=== PATIENT | male | born 1930 | race Caucasian/White ===

== ENCOUNTER 2019-01-26 11:17 | Emergency (ER) | payer MEDICARE, OTHER ==
--- NOTE | 2019-01-26 11:51 | ED Physician Chart ---
ED Chief Complaint/HPI - Patient Information Date Seen:: 01/26/19 Time Seen:: 11:30 Chief Complaint:: Weakness History of Present Illness:: onset x 2 days of weakness and dizziness with a possible syncope event; pt found on floor of his home unable to ambulate; no report of H/As, neck pain, C/P , SOB, Abd. Pain, A/N/V/D/C, fever, chills, or urinary s/s Vitals:: Vital Signs - 8 hr 01/26/19 11:33 Temp 97.5 F HR 60 RR 14 BP 103/64 O2 Sat % 98 Historian:: Patient, Family Member Review:: Nurse's Note Reviewed, Old Chart Reviewed ED Review of Systems - Review of Systems General/Constitutional: No fever, No chills, No weight loss, Weakness, No diaphoresis, No edema, No loss of appetite Skin: No skin lesions, No rash, No bruising Head: No headache, No light-headedness Eyes: No loss of vision, No pain, No diplopia ENT: No earache, No nasal drainage, No sore throat, No tinnitus Neck: No neck pain, No swelling, No thyromegaly, No stiffness, No mass noted Cardio Vascular: No chest pain, No palpitations, No PND, No orthopnea, No edema Pulmonary: No SOB, No cough, No sputum, No wheezing GI: No nausea, No vomiting, No diarrhea, No pain, No melena, No hematochezia, No constipation, No hematemesis G/U: No dysuria, No frequency, No hematuria, No nacturia Musculoskeletal: No bone or joint pain, No back pain, No muscle pain Endocrine: No polyuria, No polydipsia Psychiatric: No prior psych history, No depression, No anxiety, No suicidal ideation, No homicidal ideation, No auditory hallucination, No visual hallucination Hematopoietic: No bruising, No lymphadenopathy Allergic/Immuno: No urticaria, No angioedema Neurological: No syncope, No focal symptoms, Weakness, No paresthesia, No headache, No seizure, Dizziness, No confusion, Vertigo ED Past Medical History - Past Medical History Obtainable: Yes Past Medical History: HTN, Dyslipidemia Family History: HTN Social History: Non Smoker, No Alcohol, No Drug Use, Surgical History: None Psychiatricy History: None Medication: Reviewed Family Medical History - Family Member Mother History Unknown: Yes ED Physical Exam - Physical Examination General/Constitutional: Awake, Well-developed, well-nourished, Alert, No distress, GCS 15, Non-toxic appearing, Ambulatory Head: Atraumatic Eyes: Lids, conjuctiva normal, PERRL, EOMI Skin: Nl inspection, No rash, No skin lesions, No ecchymosis, Well hydrated, No lymphadenopathy ENMT: External ears, nose nl, TM canals nl, Nasal exam nl, Lips, teeth, gums nl , Oropharynx nl, Tonsils nl Neck: Nontender, Full ROM w/o pain, No JVD, No nuchal rigidity, No bruit, No mass, No stridor Respiratory: Nl effort/Exclusion, Clear to Auscultation, No Wheeze/Rhonchi/Rales Cardio Vascular: RRR, No murmur, gallop, rubs, NL S1 S2, Carotid/Femoral/Distal pulses equal bilaterally GI: No tenderness/rebounding/guarding, No organomegaly, No hernia, Normal BS's, Nondistended, No mass/bruits, No McBurney tenderness : No CVA tenderness Extremities: No tenderness or effusion, Full ROM, normal strength in all extremities, No edema, Normal digits & nails Neuro/Psych: Alert/oriented, DTR's symmetric, Normal sensory exam, Normal motor strength, Judgement/insight normal, Mood normal, Normal gait, No focal deficits Misc: Normal back, No paraspinal tenderness ED Labs/Radiology/EKG Results - Lab Results Comments:: Reviewed - Radiology Results Comments:: CXR: CM; NAD - EKG Interpretations EKG Time:: 11:48 Rate & Rhythm: 85; NSR Comments:: non-specific st-t changes ED Septic Shock - . Is Septic Shock (SBP<90, OR Lactate>4 mmol\L) present?: No - <6hrs of presentation: Vital Signs: Vital Signs - 8 hr 01/26/19 11:33 Temp 97.5 F HR 60 RR 14 BP 103/64 O2 Sat % 98 ED Reassessment (Disposition) - Reassessment Reassessment Condition:: Improved - Diagnosis Diagnosis:: Weakness; Dizziness; Dehydration; Hypoalbuminemia; Hyponatremia; Lactic Acidosis ; Elevated Lactic Acid; UTI; Sepsis - Aftercare/Follow up Instructions Aftercare/Follow-Up Instructions:: Counseled pt regarding lab results/diagnosis & need follow up, Counseled pt & family regarding lab results/diagnosis & need follow up Medication Prescribed:: pt to be transferred as a direct admission to a [facility] via [facility] - Patient Disposition Discharge/Transfer:: Acute Care (other hosp) Time Called:: 1300 Time Responded:: 13:00 Admitted to:: Telemetry Condition at Disposition:: Stable, Improved
[2019-01-26 12:12] LABS: % BASOPHILS 0.5 % (0.0-2.0); % LYMPHOCYTES 13.5 % (20.0-50.0); % MONOCYTES 7.5 % (2.0-10.0); % NEUTROPHILS 77.5 % (40.0-80.0); EOSINOPHILE ABSOLUTE 0.1 Th/cmm (0.1-0.4); HEMATOCRIT 39.9 % (41.0-60); HEMOGLOBIN 13.3 gm/dL (12-16); LYMPHOCYTE ABSOLUTE 1.3 Th/cmm (1.5-3.0); MEAN CELL VOLUME 94.5 fl (80-99); MEAN CORPUSCULAR HEMOGLOBIN 31.4 pg (27.0-31.0); MEAN CORPUSCULAR HGB CONC 33.2 pg (28.0-36.0); MEAN PLATELET VOLUME 7.1 fl; MONOCYTE ABSOLUTE 0.7 Th/cmm (0.3-1.0); NEUTROPHILE ABSOLUTE 7.8 Th/cmm (1.8-8.0); PLATELET COUNT 196 Th/cmm (150-400); RED BLOOD COUNT 4.22 Mil/cmm (3.80-5.80); RED CELL DISTRIBUTION WIDTH 13.3 % (11.5-20.0); WHITE BLOOD COUNT 9.9 Th/cmm (4.8-10.8)
[2019-01-26 12:20] LABS: INR 0.99 (0.5-1.4); PROTHROMBIN TIME (TEST) 10.3 SECONDS (9.5-11.5)
[2019-01-26 12:24] LABS: ALB/GLOB RATIO 1.4 (1.0-1.8); ALKALINE PHOSPHATASE 64 U/L (34-104); BILIRUBIN,TOTAL 0.8 mg/dL (0.3-1.0); BUN - UREA NITROGEN 31 mg/dL (7-25); CALCIUM SERUM 9.7 mg/dL (8.6-10.3); CARBON DIOXIDE 19.8 mEq/L (21.0-31.0); CHLORIDE 101 mEq/L (98-107); CREATININE - SERUM 1.5 mg/dL (0.7-1.3); CREATININE KINASE 290 U/L (30-223); GLUCOSE 207 mg/dL (70-105); POTASSIUM SERUM 3.8 mEq/L (3.5-5.1); SGOT 16 U/L (13-39); SGPT/ALT 12 U/L (7-52); SODIUM SERUM 135 mEq/L (136-145); TOTAL PROTEIN,SERUM 6.8 gm/dL (6.0-8.3)
[2019-01-26 12:32] LABS: TROP I 0.06 ng/mL (0.01-0.05)
[2019-01-26] MEDS ORDERED: Sodium Chloride 0.9% 1,000 ML IV ONE (12:35)
[2019-01-26] MEDS ORDERED: cefTRIAXone 1 GM in Sodium Chloride 0.9% 50 ML IV ONE (12:36)
[2019-01-26 12:51] LABS: AMYLASE SERUM 54 U/L (29-103); LIPASE 23 U/L (11-82)
[2019-01-26 14:09] LABS: URINE SOURCE MIDSTREAM
[2019-01-26 14:13] LABS: URINE BILIRUBIN NEGATIVE (NEGATIVE); URINE BLOOD MODERATE (NEGATIVE); URINE GLUCOSE (UA) 100 mg/dL (NEGATIVE); URINE KETONE TRACE mg/dL (NEGATIVE); URINE LEUKOCYTE ESTERASE MODERATE (NEGATIVE); URINE MICROSCOPIC INDICATED? YES; URINE NITRATE POSITIVE (NEGATIVE); URINE PROTEIN 100 mg/dL (NEGATIVE)
[2019-01-26 14:14] LABS: URINE CLARITY HAZY (CLEAR); URINE COLOR YELLOW
[2019-01-26 14:19] LABS: URINE BACTERIA 3+ /hpf (NONE SEEN); URINE EPITHELIAL CELLS FEW /lpf (FEW)
[2019-01-26 14:20] LABS: URINE AMORPHOUS SEDIMENT FEW URATES (NONE SEEN)
[2019-01-26] MEDS ORDERED: Sodium Chloride 0.9% 1,000 ML IV SCH (19:00)
--- NOTE | 2019-01-27 08:00 | Diagnostic Imaging Report ---
Portable chest x-ray History: Pain Allowing for portable technique the heart size is normal. Atherosclerotic calcification seen in the aorta. No focal pulmonary parenchymal processes. No hilar or mediastinal abnormalities. Impression: 1. No acute abnormalities 2. Atherosclerotic vascular changes
--- NOTE | 2019-01-27 08:00 | Diagnostic Imaging Report ---
CT scan of the brain without intravenous contrast HISTORY: Headache, trauma Total DLP equals 612 CTDI equals 40.4 Axial sections were obtained from the base of the skull to the vertex. There is prominence/enlargement of the ventricular system size. Associated enlargement of cerebral sulci and subarachnoid cisterns. Findings are consistent with changes of generalized cerebral atrophy. No acute parenchymal abnormalities. No acute cerebral hemorrhage. Hypodensity is seen within the supratentorial white matter regions without mass effect. The findings may be associated with chronic small vessel ischemic disease. No extra-axial masses or abnormal fluid collections. Evidence of fluid within the right mastoid air cells consistent with a degree of inflammatory change. IMPRESSION: 1. No acute abnormalities 2. Cerebral atrophy 3. Supratentorial white matter changes that may reflect chronic small vessel ischemic disease 4. Fluid within a portion of the right mastoid air cells consistent with a degree of inflammatory change.
--- NOTE | 2019-01-27 08:02 | Diagnostic Imaging Report ---
CT scan cervical spine HISTORY: Pain, trauma Total DLP equals 418 CTDI equals 20.8 Axial sections were obtained to the cervical spine. Additional sagittal and coronal reformatted images are provided. There is reversal of the cervical lordosis that may be associated with spasm. There are diffuse degenerative changes. Findings most pronounced with exuberant spur formation noted at C3-4, C5, C6,. Narrowing of the C4-5, C5-6, C6-7, and C7-T1 interspaces. No acute abnormalities. No fractures. Bilateral neural foraminal encroachment at multiple levels. The prevertebral soft tissues appear normal. Atherosclerotic calcification seen within the carotid artery regions. IMPRESSION: 1. No acute abnormalities 2. Severe degenerative changes 3. Atherosclerotic vascular changes
== END 2019-01-26 20:00 | disposition short-term general hospital (02) ==
LOC: ER 11:17
DX: A41.9 Sepsis, unspecified organism (principal); E87.1 Hypo-osmolality and hyponatremia; E86.0 Dehydration; E87.2 Acidosis; N39.0 Urinary tract infection, site not specified; E88.09 Other disorders of plasma-protein metabolism, not elsewhere classified; R42 Dizziness and giddiness; I10 Essential (primary) hypertension
CPT/HCPCS: 99285; 96365; 93005; 71045; 70450; 72125; 84484; 36415; 83605 ×2; 85025; 85610; 85730; 87086; 81001; 82150; 82550; 82553; 83036; 83690; 80053; 87040 ×2; J0696; J7030

== ENCOUNTER 2019-03-31 09:36 | Inpatient (IN) | payer OTHER ==
--- NOTE | 2019-03-31 09:54 | ED Physician Chart ---
ED Chief Complaint/HPI - Patient Information Date Seen:: 03/31/19 Time Seen:: 09:40 Chief Complaint:: Generalized weakness with recurrent falls. History of Present Illness:: Brought in by his daughter Simran and his because of generalized weakness with recurrent falls for about one week. Pt feels lightheaded occasionally. Pt has had recurrent falls and sustained skin tear in proximal left forearm last evening. Pt also has had left sided chest wall pain from a fall about 2 months ago that can be precipitated and aggravated with deep inspiration. No LOC or mentation change. Pt is alert and oriented x 3. Pt speaks clearly and overall cooperative. Last tetanus immunization is unknown. Allergies:: Allergies Allergy/AdvReac Type Severity Reaction Status Date / Time No Known Allergies Allergy Verified 01/26/19 11:46 Vitals:: see Nurse Note. Historian:: Patient, Family Member (daughter Simran.) Family MD/PCP:: Dr. Mix. LMP:: N/A Review:: Nurse's Note Reviewed ED Review of Systems - Review of Systems General/Constitutional: No fever, No weight loss, Weakness (generalized.), No diaphoresis, No edema, Loss of appetite Skin: No rash, Other (left forearm skin tear.) Head: No headache, Light headed (occasional) Eyes: No loss of vision, No pain, No diplopia ENT: No earache, Sore throat (?) Neck: No neck pain, No swelling, No thyromegaly, No stiffness, No mass noted Cardio Vascular: Chest pain (chest wall pain after a fall 2 months ago.), No palpitations, No PND, No orthopnea, No edema Pulmonary: No SOB, Cough, Sputum (yellow sputum), No wheezing GI: No nausea, No vomiting, No pain, No melena, No hematochezia G/U: No dysuria, No frequency, No hematuria Musculoskeletal: Other (posterior neck pain.) Psychiatric: No prior psych history, No depression Hematopoietic: No lymphadenopathy Allergic/Immuno: No urticaria, No angioedema Neurological: No syncope, No focal symptoms, Weakness (generalized weakness as well as left hemiparesis related to CVA about 2 y/a.), No headache, No seizure, No confusion ED Past Medical History - Past Medical History Past Medical History: HTN, DM, 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 Surgical History: None Psychiatricy History: None Medication: Reviewed Family Medical History - Family Member Mother History Unknown: Yes ED Physical Exam - Physical Examination General/Constitutional: Awake, Well-developed, well-nourished, Alert, No distress, GCS 15, Non-toxic appearing Other Gen/Cons comments:: Breathes comfortably with frequent coughs. Speaks clearly and interacts appropriately. Head: Atraumatic Eyes: Lids, conjuctiva normal, PERRL Skin: No rash, No lymphadenopathy Other Skin comments:: There is an approx. 3 cm skin tear noticed in proximal left forearm with minimal tenderness with palpation. No gross deformity, erythema, swelling or active bleeding. Left upper extremity has good ROM of all joints. No detectable motor/sensory/vascular deficit. Good distal pulse. Mucous membrane is slightly dry. ENMT: External ears, nose nl, TM canals nl, Nasal exam nl, Oropharynx nl Neck: No JVD, No nuchal rigidity, No mass, No stridor Other Neck comments:: Mild tenderness at posterior aspect. No gross deformity, erythema, ecchymosis, swelling or open wound. Respiratory: Nl effort/Exclusion Other Respiratory comments:: Few scattered crackles at the bases. No rales or wheeze. Cardio Vascular: RRR, No murmur, gallop, rubs, Carotid/Femoral/Distal pulses equal bilaterally GI: No tenderness/rebounding/guarding, No organomegaly, Normal BS's, Nondistended, No mass/bruits Other GI comments:: Abdomen is soft. : No CVA tenderness Extremities: No tenderness or effusion, Full ROM, No edema Neuro/Psych: Alert/oriented (oriented x 3), Judgement/insight normal, Mood normal Other Neuro/Psych comments:: Mild motor weakness in LUE and LLE. Pt states that this is chronic since his stroke about 2 years ago. Misc: Normal back, No paraspinal tenderness ED Labs/Radiology/EKG Results - Lab Results Results: Laboratory Results - last 24 hr 03/31/19 03/31/19 03/31/19 10:40 10:40 10:40 WBC 11.5 H RBC 4.02 Hgb 12.9 Hct 37.7 L MCV 93.8 MCH 32.0 H MCHC Differential 34.1 RDW 13.2 Plt Count 251 MPV 6.5 Add Manual Diff YES Band Neutrophils % 0 Neutrophils (Manual) 84 H Lymphocytes 10 L Monocytes 6 Eosinophils 0 Basophils 0 PT 10.3 INR 0.99 PTT (Actin FS) 28.5 Sodium 137 Potassium 4.1 Chloride 103 Carbon Dioxide 22.5 Anion Gap 15.6 BUN 28 H Creatinine 1.3 Est GFR ( Amer) TNP Est GFR (Non-Af Amer) TNP BUN/Creatinine Ratio 21.5 Glucose 212 H Calcium 9.8 Total Bilirubin 1.2 H AST 12 L ALT 13 Alkaline Phosphatase 88 Troponin I Total Protein 6.9 Albumin 3.9 L Globulin 3.0 Albumin/Globulin Ratio 1.3 03/31/19 10:40 WBC RBC Hgb Hct MCV MCH MCHC Differential RDW Plt Count MPV Add Manual Diff Band Neutrophils % Neutrophils (Manual) Lymphocytes Monocytes Eosinophils Basophils PT INR PTT (Actin FS) Sodium Potassium Chloride Carbon Dioxide Anion Gap BUN Creatinine Est GFR ( Amer) Est GFR (Non-Af Amer) BUN/Creatinine Ratio Glucose Calcium Total Bilirubin AST ALT Alkaline Phosphatase Troponin I 0.01 Total Protein Albumin Globulin Albumin/Globulin Ratio - Radiology Results Results: PCXR: No acute abnormalities. Atherosclerotic vascular changes. 5 mm calcified nodule within the left upper lobe c/w old granulomatous disease. Official report by Dr. Lee Valles, radiologist. Left rib series: No acute abnormalities. Official report by Dr. Lee Valles, radiologist. Left forearm X-ray: No acute focal bony abnormalities. Official report by Dr. Lee Valles, radiologist. Head CT: No acute abnormalities. Supratentorial white matter changes. The findings may be associated with chronic small vessel ischemic disease. Cerebral atrophy. Official report by Dr. Lee Valles, radiologist. Cervical spine CT: No acute abnormalities. Diffuse degenerative changes. Atherosclerotic vascular changes. Official report per Dr. Lee Valles, radiologist. - EKG Interpretations EKG Time:: 10:19 Rate & Rhythm: NSR with VR 78 Comments:: No acute ischemic changes. ED Septic Shock - . Is Septic Shock (SBP<90, OR Lactate>4 mmol\L) present?: No ED Reassessment (Disposition) - Reassessment Reassessment:: 1136 Pt has been repeatedly evaluated. Pt remains stable and is now comfortable. EKG, lab, and radiological findings have been reviewed with pt. Management plan has been discussed. 1315 Case was discussed with Dr. Ba with pertinent H & P, EKG, radiological , and lab findings reviewed. He will accept pt for transfer if a hospital bed is found. 1508 Pt remains stable and appears to be comfortable. Nursing staff just informed me that pt has been authorized to be admitted here. 1518 Case was discussed with Dr. Sanabria with pertinent info reviewed. Pt is to be admitted to [facility] under his care. Reassessment Condition:: Improved - Diagnosis Diagnosis:: Generalized weakness with frequent falls, resulting in left forearm skin tear and cervical strain. Mild dehydration from poor oral intake. Acute bronchitis. Diabetes mellitus. Chronic left sided chest wall pain from previous fall by hx. Mild hyperbilirubinemia. Consider Gilbert Syndrome. H/O CVA with left hemiparesis. - Patient Disposition Admitted to:: Med/Surg Admitting Medical Physician:: Jevon Sanabria Time:: 15:20 Condition at Disposition:: Stable
[2019-03-31] MEDS ORDERED: Acetaminophen 500 MG TAB PO ONE (10:13)
[2019-03-31] MEDS ORDERED: Acetaminophen 500 MG TAB ONE (10:17)
[2019-03-31 10:52] LABS: HEMATOCRIT 37.7 % (41.0-60); HEMOGLOBIN 12.9 gm/dL (12-16); MEAN CELL VOLUME 93.8 fl (80-99); MEAN CORPUSCULAR HGB CONC 34.1 pg (28.0-36.0); MEAN PLATELET VOLUME 6.5 fl; PLATELET COUNT 251 Th/cmm (150-400); RED BLOOD COUNT 4.02 Mil/cmm (3.80-5.80); RED CELL DISTRIBUTION WIDTH 13.2 % (11.5-20.0); WHITE BLOOD COUNT 11.5 Th/cmm (4.8-10.8)
[2019-03-31 11:03] LABS: INR 0.99 (0.5-1.4); PROTHROMBIN TIME (TEST) 10.3 SECONDS (9.5-11.5)
[2019-03-31] MEDS ORDERED: Azithromycin 500 MG in Sodium Chloride 0.9% 250 ML IV ONE (11:13)
[2019-03-31 11:17] LABS: ALB/GLOB RATIO 1.3 (1.0-1.8); ALBUMIN 3.9 gm/dL (4.2-5.5); ALKALINE PHOSPHATASE 88 U/L (34-104); ANION GAP 15.6 (7.0-16.0); BILIRUBIN,TOTAL 1.2 mg/dL (0.3-1.0); BUN - UREA NITROGEN 28 mg/dL (7-25); CALCIUM SERUM 9.8 mg/dL (8.6-10.3); CARBON DIOXIDE 22.5 mEq/L (21.0-31.0); CHLORIDE 103 mEq/L (98-107); CREATININE - SERUM 1.3 mg/dL (0.7-1.3); GLUCOSE 212 mg/dL (70-105); POTASSIUM SERUM 4.1 mEq/L (3.5-5.1); SGOT 12 U/L (13-39); SGPT/ALT 13 U/L (7-52); SODIUM SERUM 137 mEq/L (136-145); TOTAL PROTEIN,SERUM 6.9 gm/dL (6.0-8.3)
--- NOTE | 2019-03-31 11:20 | Diagnostic Imaging Report ---
CT scan of the brain without intravenous contrast HISTORY: Recurrent falls, syncope Total DLP equals 747 CTDI equals 39.2 Axial sections were obtained from the base of the skull the vertex. There is enlargement of the ventricular system along with enlargement of cerebral sulci and subarachnoid cisterns reflecting generalized atrophy. Hypodensity seen throughout the supratentorial white matter regions without mass effect. The findings may be associated with chronic small vessel ischemic disease. No acute intracerebral hemorrhage. No extra-axial masses or abnormal fluid collections. IMPRESSION: 1. No acute abnormalities 2. Supratentorial white matter changes. The findings may be associated with chronic small vessel ischemic disease 3. Cerebral atrophy
--- NOTE | 2019-03-31 11:21 | Diagnostic Imaging Report ---
CT scan cervical spine HISTORY: Pain, trauma Total DLP equals 479 CTDI equals 19.9 Axial sections were obtained through the cervical spine. Additional sagittal and coronal reformatted images are provided. The exam demonstrates degenerative changes with hypertrophic spur formation noted about the endplates of all vertebrae. Findings are most pronounced from C4 down through C7. Narrowing of the C4-5, C5-6, C6-7, and C7-T1 interspaces. Spur formation results in mild extradural encroachment on the anterior spinal canal at these levels. No acute abnormalities. No fractures. The prevertebral soft tissues appear normal. Atherosclerotic vascular calcination seen in the region of the carotid arteries. IMPRESSION: 1. No acute abnormalities 2. Diffuse degenerative changes 3. Atherosclerotic vascular changes
[2019-03-31 11:22] LABS: BAND NEUTROPHILE 0 % (0-10); BASOPHIL 0 % (0-3); EOSINOPHIL 0 % (0-5); LYMPHOCYTE 10 % (20-50); MONOCYTE 6 % (2-10); NEUTROPHILS 84 % (40-80)
--- NOTE | 2019-03-31 11:29 | Diagnostic Imaging Report ---
Portable chest x-ray HISTORY: Cough The heart size is normal. Atherosclerotic calcification seen within the aorta. A 5 mm calcified nodule is seen in the left upper lobe. Findings consistent with old granulomatous disease. No acute focal pulmonary processes. IMPRESSION: 1. No acute abnormalities 2. Atherosclerotic vascular changes 3. 5 mm calcified nodule within the left upper lobe consistent with old granulomatous disease.
--- NOTE | 2019-03-31 11:31 | Diagnostic Imaging Report ---
Left RIBS (4 views) HISTORY: Pain No acute bony abnormalities. No fractures. No acute pulmonary parenchymal or pleural abnormalities. A 5 mm calcified nodule is seen in the left upper lobe of the lung consistent with old granulomatous disease. Atherosclerotic calcination seen in the aorta. IMPRESSION: 1. No acute abnormalities.
--- NOTE | 2019-03-31 11:32 | Diagnostic Imaging Report ---
Left forearm (2 views) HISTORY: Pain No acute bony abnormalities. No fractures. IMPRESSION: 1. No acute focal bony abnormalities
[2019-03-31] MEDS ORDERED: Sodium Chloride 0.9% 1,000 ML IV SCH (11:36)
[2019-03-31 14:54] LABS: URINE SOURCE CLEAN C
[2019-03-31 14:57] LABS: URINE BILIRUBIN SMALL (NEGATIVE); URINE BLOOD SMALL (NEGATIVE); URINE GLUCOSE (UA) 100 mg/dL (NEGATIVE); URINE KETONE TRACE mg/dL (NEGATIVE); URINE LEUKOCYTE ESTERASE MODERATE (NEGATIVE); URINE MICROSCOPIC INDICATED? YES; URINE NITRATE NEGATIVE (NEGATIVE); URINE PH 5.5 (4.6 - 8.0); URINE PROTEIN 100 mg/dL (NEGATIVE)
[2019-03-31 15:10] LABS: URINE CLARITY CLEAR (CLEAR); URINE COLOR YELLOW
[2019-03-31 15:14] LABS: URINE BACTERIA 1+ /hpf (NONE SEEN); URINE EPITHELIAL CELLS FEW /lpf (FEW)
[2019-03-31] MEDS ORDERED: Sulfamethoxazole/TMP 800/160mg Tab PO ONE (15:26)
[2019-03-31] MEDS ORDERED: Sulfamethoxazole/TMP 800/160mg Tab ONE (15:35)
[2019-03-31] MEDS ORDERED: cefTRIAXone 1 GM in Sodium Chloride 0.9% 50 ML IV SCH (18:45)
[2019-03-31] MEDS ORDERED: Sodium Chloride 0.9% 1,000 ML IV ONE (18:45)
[2019-03-31 19:10] VITALS: BP 159/74
[2019-03-31] MEDS: Ciprofloxacin 200mg Premix PB 200 MG/100 ML BAG IV SCH (20:16)
[2019-03-31] MEDS: INSULIN LISPRO SLIDING SCALE 100 UNITS/ML UNIT SUBQ SCH (20:24)
[2019-04-01 04:58] LABS: % BASOPHILS 0.4 % (0.0-2.0); % EOSINOPHILS 2.9 % (0.0-5.0); % LYMPHOCYTES 10.6 % (20.0-50.0); % MONOCYTES 7.5 % (2.0-10.0); % NEUTROPHILS 78.6 % (40.0-80.0); EOSINOPHILE ABSOLUTE 0.3 Th/cmm (0.1-0.4); HEMOGLOBIN 11.8 gm/dL (12-16); LYMPHOCYTE ABSOLUTE 1.1 Th/cmm (1.5-3.0); MEAN CELL VOLUME 94.5 fl (80-99); MEAN CORPUSCULAR HEMOGLOBIN 31.1 pg (27.0-31.0); MEAN CORPUSCULAR HGB CONC 32.9 pg (28.0-36.0); MEAN PLATELET VOLUME 6.2 fl; MONOCYTE ABSOLUTE 0.8 Th/cmm (0.3-1.0); NEUTROPHILE ABSOLUTE 8.6 Th/cmm (1.8-8.0); PLATELET COUNT 252 Th/cmm (150-400); RED BLOOD COUNT 3.81 Mil/cmm (3.80-5.80); RED CELL DISTRIBUTION WIDTH 13.4 % (11.5-20.0); WHITE BLOOD COUNT 10.8 Th/cmm (4.8-10.8)
[2019-04-01 06:02] LABS: ALB/GLOB RATIO 1.3 (1.0-1.8); ALBUMIN 3.6 gm/dL (4.2-5.5); ALKALINE PHOSPHATASE 82 U/L (34-104); ANION GAP 15.3 (7.0-16.0); BILIRUBIN,TOTAL 1.2 mg/dL (0.3-1.0); BUN - UREA NITROGEN 23 mg/dL (7-25); CALCIUM SERUM 9.2 mg/dL (8.6-10.3); CARBON DIOXIDE 21.9 mEq/L (21.0-31.0); CHLORIDE 103 mEq/L (98-107); CHOLESTEROL 104 mg/dL (<200); CREATININE - SERUM 1.2 mg/dL (0.7-1.3); HDL -HIGH DENSITY LIPOPROTEIN 29 mg/dL (23-92); MAGNESIUM 1.5 mg/dL (1.9-2.7); POTASSIUM SERUM 3.2 mEq/L (3.5-5.1); SGOT 13 U/L (13-39); SGPT/ALT 15 U/L (7-52); SODIUM SERUM 137 mEq/L (136-145); TOTAL PROTEIN,SERUM 6.4 gm/dL (6.0-8.3); TRIGLYCERIDES 117 mg/dL (<150)
[2019-04-01 06:03] LABS: GLUCOSE 134 mg/dL (70-105)
[2019-04-01] MEDS ORDERED: Potassium Chloride 20 mEq ER Tab PO ONE (07:06)
[2019-04-01] MEDS: INSULIN LISPRO SLIDING SCALE 100 UNITS/ML UNIT SUBQ SCH ×4 (07:39→21:54)
[2019-04-01] MEDS: Aspirin 81mg Chewable Tab PO SCH (08:33)
[2019-04-01] MEDS: Ciprofloxacin 200mg Premix PB 200 MG/100 ML BAG IV SCH ×2 (08:35→21:51)
[2019-04-01] MEDS ORDERED: Atorvastatin Calcium 10 MG TAB PO SCH (17:00)
[2019-04-01] MEDS ORDERED: Promethazine DM 6.25/15mg-5mL 5 ML SYR PO PRN (21:08)
--- NOTE | 2019-04-01 21:43 | History & Physical ---
ADMIT DATE: 03/31/2019 CHIEF COMPLAINT: Frequent falling and left-sided weakness. HISTORY OF PRESENT ILLNESS: The patient is an 88-year-old gentleman with a history of CVA about 2 years ago with residual left-sided upper and lower extremity weakness, occasional dizziness, history of hypertension, diabetes, who was brought in by his daughter for recurrent falls, more noticeable for the last week. It is unsure as to how many falls he has had for the prior mentioned time, but there is also previous falling. Per patient's account including 1-2 months ago where he ended up with a hitting his left thorax into a kitchen cabinet and since then he has had chest pain, especially upon deep breathing and some congestion with yellow phlegm. The chest pain is getting better and he has been treated a couple of times with p.o. antibiotics with no avail. Apparently, he did receive physical therapy after the stroke was diagnosed, but he stopped that as he did not feel he was getting better. Pertinent findings noted at the ER including a white count of 11.5. UA consistent with a UTI. A head CT showing; 1. No acute abnormalities. 2. Supratentorial white matter changes. 3. Cerebral atrophy. He also had a cervical spine CT showing; 1. No acute abnormalities. 2. Diffuse degenerative changes. 3. Atherosclerotic vascular changes. The patient has been admitted to the [facility] for further management and care. PAST MEDICAL HISTORY: As noted above, also dyslipidemia, BPH. PAST SURGICAL HISTORY: None listed. FAMILY HISTORY: History of coronary artery disease. There is also one daughter with a brain cancer. SOCIAL HISTORY: Denies any tobacco, ETOH or illicit drug usage. Currently lives at home with family. ALLERGIES: AMOXICILLIN. OUTPATIENT MEDICATIONS: Losartan 50 every day, metformin 1000 mg b.i.d., aspirin 81 every day, atorvastatin 20 every day, Plavix 75 every day, Proscar 5 every day, glipizide 10 mg b.i.d., lisinopril 10 mg daily, Flomax 0.4 daily. REVIEW OF SYSTEMS: CONSTITUIONALLY: Feels weak and tired with a recent decreased p.o. intake given his cough. Again, he complains of occasional dizziness, but denies any fever, chills, any recent weight loss per se. HEAD AND NECK: Congestion. Currently, no sinus pressure or congestion. CARDIAC: Denies any chest pain, palpitations. PULMONARY: Ongoing cough for the last couple of months and occasional chest pain upon deep breathing, which is getting better. GASTROINTESTINAL: No bowel habit changes. GENITOURINARY: No bladder habit changes. NEUROLOGIC: Please refer to HPI. Frequent falling well, which are nonsyncopal in nature. He does complain of left-sided weakness and feels that his a left lower extremity gives out, and therefore, in conjunction with the dizziness has experienced the frequent falls. PHYSICAL EXAMINATION: VITAL SIGNS: Temperature 98.5, pulse 62, BP 146/73, respirations 18, satting 94-96% on room air. GENERAL: He is a well-developed, thin elderly male, currently lying in bed, awake, alert and oriented x 3, able to answer questions appropriately. He is not distress, nontoxic appearing. HEAD AND NECK: Normocephalic, atraumatic. Pupils are reactive to light. Extraocular movements are intact. Oropharynx is moist and clear. CARDIOVASCULAR: Regular rate and rhythm without any noticeable murmurs, gallops or rubs. LUNGS: Diminished at the bases, currently clear to auscultation. ABDOMEN: Soft, supple, nontender, nondistended, normoactive bowel sounds. EXTREMITIES: Lower extremity, there is no pedal edema. NEUROLOGIC: There is a left-sided weakness roughly about 3/5 in both upper and lower extremities. Otherwise, neuro exam is intact. LABORATORY DATA: On admission, white count 11.5, H and H 12/37 with platelet count of 251. BUN 28. Otherwise, chemistry was within normal limits. Glucose 212. LFTs were essentially within normal limits. Troponins are negative x 1 set. Albumin 3.9. UA positive for protein and glucose, small blood, small bilirubin, moderate leukocyte esterase with 2-5 rbc's, 6-10 wbc's and 1+ bacteria. DIAGNOSTICS: Please refer to HPI. There was also x-ray, ribs; no acute abnormalities. X-ray of the left forearm shows no acute abnormalities. Chest x-ray: 1. No acute abnormalities. 2. Atherosclerotic vascular changes. 3. A 5 mm calcified nodule within the left upper lobe consistent with old granulomatous disease. ASSESSMENT: 1. Generalized weakness with frequent falls. 2. Recent fall with left-sided trauma -- no obvious fractures per x-ray, resolved. 3. Likely bronchitis versus pneumonia/atelectasis secondary to chest wall pain. 4. Urinary tract infection. 5. History of cerebrovascular accident with left-sided weakness. 6. History of type 2 diabetes. 7. History of essential hypertension. 8. Leukocytosis. 9. History of benign prostatic hypertrophy. PLAN: The patient has been admitted to [facility] for further management and care. The patient has been placed on IV antibiotics to cover the UTI and possible bronchitis and will be kept on his current medications except for the TANNER inhibitor, which will be discontinued given that he is on ARB. He was briefly placed on IV fluids at the ER, which have been discontinued and as far as his frequent falling, I have discussed the plan with the patient, which he is agreeable to which includes a 2D echo, carotid ultrasound and a physical therapy evaluation. We will follow urine cultures and sensitivities and followup x-ray resolved in the a.m. [facility]# [id number] LEOLA
[2019-04-02 06:36] LABS: ANION GAP 12.7 (7.0-16.0); BUN - UREA NITROGEN 15 mg/dL (7-25); CALCIUM SERUM 8.8 mg/dL (8.6-10.3); CARBON DIOXIDE 19.9 mEq/L (21.0-31.0); CHLORIDE 108 mEq/L (98-107); GLUCOSE 109 mg/dL (70-105); MAGNESIUM 2.1 mg/dL (1.9-2.7); POTASSIUM SERUM 3.6 mEq/L (3.5-5.1); SODIUM SERUM 137 mEq/L (136-145)
[2019-04-02] MEDS: INSULIN LISPRO SLIDING SCALE 100 UNITS/ML UNIT SUBQ SCH ×4 (06:41→20:47)
[2019-04-02 06:44] LABS: % BASOPHILS 0.3 % (0.0-2.0); % EOSINOPHILS 2.5 % (0.0-5.0); % LYMPHOCYTES 14.7 % (20.0-50.0); % MONOCYTES 9.3 % (2.0-10.0); % NEUTROPHILS 73.2 % (40.0-80.0); EOSINOPHILE ABSOLUTE 0.2 Th/cmm (0.1-0.4); LYMPHOCYTE ABSOLUTE 1.2 Th/cmm (1.5-3.0); MEAN CELL VOLUME 95.5 fl (80-99); MEAN CORPUSCULAR HEMOGLOBIN 31.9 pg (27.0-31.0); MEAN CORPUSCULAR HGB CONC 33.4 pg (28.0-36.0); MEAN PLATELET VOLUME 6.5 fl; MONOCYTE ABSOLUTE 0.8 Th/cmm (0.3-1.0); NEUTROPHILE ABSOLUTE 5.9 Th/cmm (1.8-8.0); PLATELET COUNT 233 Th/cmm (150-400); RED BLOOD COUNT 3.46 Mil/cmm (3.80-5.80); RED CELL DISTRIBUTION WIDTH 13.2 % (11.5-20.0); WHITE BLOOD COUNT 8.1 Th/cmm (4.8-10.8)
--- NOTE | 2019-04-02 08:01 | Diagnostic Imaging Report ---
CHEST X-RAY: AP view INDICATION: Cough COMPARISON: 03/31/2019 FINDINGS: Left upper lung zone 4mm calcified granuloma is noted. Chronic lung changes are noted. No focal consolidation or effusions. Heart size is normal. Atherosclerosis is noted. IMPRESSION: Chronic lung changes. No focal consolidation identified. 4 mm left upper lobe calcified granuloma. Atherosclerotic vascular disease.
--- NOTE | 2019-04-02 08:02 | Diagnostic Imaging Report ---
Carotid ultrasound HISTORY: Falls COMPARISON: None Technique: Longitudinal and transverse sonographic sector images of the carotid arteries were obtained with doppler analysis. FINDINGS: Exam of the right side demonstrates intimal thickening and mild atherosclerotic vascular disease with focal calcified plaque seen within the proximal right ICA. Exam of the left side demonstrates intimal thickening and mild generalized atherosclerosis. No evidence of elevated velocities. The velocity ratios are within normal limits. Antegrade vertebral artery flow is demonstrated bilaterally. IMPRESSION: Mild atherosclerotic vascular disease. No evidence of hemodynamically significant stenosis.
[2019-04-02] MEDS: Aspirin 81mg Chewable Tab PO SCH (08:31)
[2019-04-02] MEDS: Ciprofloxacin 200mg Premix PB 200 MG/100 ML BAG IV SCH ×2 (08:32→20:46)
--- NOTE | 2019-04-02 10:01 | Internal Medicine Prog Note ---
Internal Medicine Subjective - Subjective Service Date: 04/02/19 (NO ACUTE EVENTS OR DISTRESS. PARTICIPATED WITH PT- MOSTLY BEDSIDE.) Patient seen and examined:: without staff Patient is:: asleep Per staff patient has:: no adverse event, eating well, tolerating meds Internal Medicine Objective - Results Result Diagrams: 04/02/19 05:15 04/02/19 05:40 Recent Labs: Laboratory Last Values WBC 8.1 Th/cmm (4.8-10.8) 04/02/19 05:15 RBC 3.46 Mil/cmm (3.80-5.80) L 04/02/19 05:15 Hgb 11.0 gm/dL (12-16) L 04/02/19 05:15 Hct 33.0 % (41.0-60) L 04/02/19 05:15 MCV 95.5 fl (80-99) 04/02/19 05:15 MCH 31.9 pg (27.0-31.0) H 04/02/19 05:15 MCHC Differential 33.4 pg (28.0-36.0) 04/02/19 05:15 RDW 13.2 % (11.5-20.0) 04/02/19 05:15 Plt Count 233 Th/cmm (150-400) 04/02/19 05:15 MPV 6.5 fl 04/02/19 05:15 Add Manual Diff YES 03/31/19 10:40 Neutrophils % 73.2 % (40.0-80.0) 04/02/19 05:15 Band Neutrophils % 0 % (0-10) 03/31/19 10:40 Lymphocytes % 14.7 % (20.0-50.0) L 04/02/19 05:15 Monocytes % 9.3 % (2.0-10.0) 04/02/19 05:15 Eosinophils % 2.5 % (0.0-5.0) 04/02/19 05:15 Basophils % 0.3 % (0.0-2.0) 04/02/19 05:15 Neutrophils (Manual) 84 % (40-80) H 03/31/19 10:40 Lymphocytes 10 % (20-50) L 03/31/19 10:40 Monocytes 6 % (2-10) 03/31/19 10:40 Eosinophils 0 % (0-5) 03/31/19 10:40 Basophils 0 % (0-3) 03/31/19 10:40 PT 10.3 SECONDS (9.5-11.5) 03/31/19 10:40 INR 0.99 (0.5-1.4) 03/31/19 10:40 PTT (Actin FS) 28.5 SECONDS (26.0-38.0) 03/31/19 10:40 Sodium 137 mEq/L (136-145) 04/02/19 05:40 Potassium 3.6 mEq/L (3.5-5.1) 04/02/19 05:40 Chloride 108 mEq/L (98-107) H 04/02/19 05:40 Carbon Dioxide 19.9 mEq/L (21.0-31.0) L 04/02/19 05:40 Anion Gap 12.7 (7.0-16.0) 04/02/19 05:40 BUN 15 mg/dL (7-25) 04/02/19 05:40 Creatinine 1.0 mg/dL (0.7-1.3) 04/02/19 05:40 Est GFR ( Amer) TNP 04/02/19 05:40 Est GFR (Non-Af Amer) TNP 04/02/19 05:40 BUN/Creatinine Ratio 15.0 04/02/19 05:40 Glucose 109 mg/dL (70-105) H 04/02/19 05:40 POC Glucose 100 MG/DL (70 - 105) 04/02/19 06:09 Calcium 8.8 mg/dL (8.6-10.3) 04/02/19 05:40 Magnesium 2.1 mg/dL (1.9-2.7) 04/02/19 05:40 Total Bilirubin 1.2 mg/dL (0.3-1.0) H 04/01/19 04:50 AST 13 U/L (13-39) 04/01/19 04:50 ALT 15 U/L (7-52) 04/01/19 04:50 Alkaline Phosphatase 82 U/L (34-104) 04/01/19 04:50 Troponin I 0.01 ng/mL (0.01-0.05) 03/31/19 10:40 B-Natriuretic Peptide 280.0 pg/mL (5.0-100.0) H 04/02/19 05:15 Total Protein 6.4 gm/dL (6.0-8.3) 04/01/19 04:50 Albumin 3.6 gm/dL (4.2-5.5) L 04/01/19 04:50 Globulin 2.8 gm/dL 04/01/19 04:50 Albumin/Globulin Ratio 1.3 (1.0-1.8) 04/01/19 04:50 Triglycerides 117 mg/dL (<150) 04/01/19 04:50 Cholesterol 104 mg/dL (<200) 04/01/19 04:50 LDL Cholesterol Direct 58 mg/dL (75-193) L 04/01/19 04:50 HDL Cholesterol 29 mg/dL (23-92) 04/01/19 04:50 TSH 3.22 uIU/ml (0.34-5.60) 04/01/19 04:50 Urine Source CLEAN C 03/31/19 14:30 Urine Color YELLOW 03/31/19 14:30 Urine Clarity CLEAR (CLEAR) 03/31/19 14:30 Urine pH 5.5 (4.6 - 8.0) 03/31/19 14:30 Ur Specific [place] 1.025 (1.005-1.030) 03/31/19 14:30 Urine Protein 100 mg/dL (NEGATIVE) H 03/31/19 14:30 Urine Glucose (UA) 100 mg/dL (NEGATIVE) H 03/31/19 14:30 Urine Ketones TRACE mg/dL (NEGATIVE) 03/31/19 14:30 Urine Blood SMALL (NEGATIVE) H 03/31/19 14:30 Urine Nitrate NEGATIVE (NEGATIVE) 03/31/19 14:30 Urine Bilirubin SMALL (NEGATIVE) H 03/31/19 14:30 Urine Urobilinogen 2.0 E.U./dL (0.2 - 1.0) 03/31/19 14:30 Ur Leukocyte Esterase MODERATE (NEGATIVE) H 03/31/19 14:30 Urine RBC 2-5 /hpf (0-5) H 03/31/19 14:30 Urine WBC 6-10 /hpf (0-5) 03/31/19 14:30 Ur Epithelial Cells FEW /lpf (FEW) 03/31/19 14:30 Urine Bacteria 1+ /hpf (NONE SEEN) H 03/31/19 14:30 - Physical Exam Vitals and I&O: Vital Signs Temp 98.0 F 04/02/19 08:00 Pulse 60 04/02/19 08:31 Resp 18 04/02/19 08:00 BP 162/77 04/02/19 08:31 Pulse Ox 96 04/02/19 08:00 Intake & Output 04/01/19 04/02/19 04/02/19 18:59 06:59 18:59 Intake Total 220 650 Output Total 120 Balance 100 650 Weight (lbs) 70.307 kg 71.668 kg Intake: Intake, IV Amount 100 100 Ciprofloxacin 200mg 100 100 Premix PB 200 mg In 100 ml @ 100 mls/hr IV Q12HR [facility] Rx#:[id number] Oral 120 550 Output: Urine 120 Other: # Voids 4 4 # Bowel Movements 0 Stool Characteristics Soft Soft Weight Source Bedscale Bedscale Active Medications: Current Medications Acetaminophen (Tylenol) 650 mg PO Q6H PRN PRN Reason: FOR PAIN Stop: 05/30/19 19:59 Last Admin: 03/31/19 20:15 Dose: 650 mg Aspirin (Aspirin Chewable) 81 mg PO DAILY [facility] Stop: 05/31/19 08:59 Last Admin: 04/02/19 08:31 Dose: 81 mg Atorvastatin Calcium (Lipitor) 20 mg PO QPM [facility] Stop: 05/31/19 16:59 Last Admin: 04/01/19 17:34 Dose: 20 mg Clopidogrel Bisulfate (Plavix) 75 mg PO QPM [facility] Stop: 05/31/19 16:59 Last Admin: 04/01/19 17:34 Dose: 75 mg Finasteride (Proscar) 5 mg PO DAILY [facility]; Protocol Stop: 05/31/19 08:59 Last Admin: 04/02/19 08:30 Dose: 5 mg Glipizide (Glucotrol) 10 mg PO BID [facility] Stop: 05/31/19 08:59 Last Admin: 04/02/19 08:30 Dose: 10 mg Ciprofloxacin (Cipro 200mg Premix Pb) 200 mg in 100 mls @ 100 mls/hr IV Q12HR [facility] Stop: 05/30/19 20:59 Last Admin: 04/02/19 08:32 Dose: 100 mls/hr Insulin Human Lispro (Humalog Insulin Sliding Scale) 0 units SUBQ ACHS [facility]; Protocol Stop: 05/30/19 20:59 Last Admin: 04/02/19 06:41 Dose: Not Given Lisinopril (Zestril) 10 mg PO DAILY [facility] Stop: 05/31/19 08:59 Last Admin: 04/02/19 08:31 Dose: 10 mg Promethazine HCl/Dextromethorphan (Phenergan Dm 6.25/15mg-5 Ml) 10 ml PO Q4HR PRN PRN Reason: Cough Stop: 05/31/19 21:07 Tamsulosin HCl (Flomax) 0.4 mg PO DAILY [facility] Stop: 05/31/19 08:59 Last Admin: 04/02/19 08:31 Dose: 0.4 mg General: NAD HEENT: NC/AT, PERRLA, EOMI Neck: Supple, No JVD, No LAD Lungs: CTAB Cardiovascular: RRR, Normal S1, Normal S2, without murmur Abdomen: soft, non-tender, non-distended Extremities: clear Neurological: no change - Procedures Procedures: CXR: CHRONIC LUNG CHANGES. 4MM MUKUND CALCIFIED GRANULOMA. ATHREROSCLEROTIC VASCULAR DISEASE CAROTID US: MILD ATHEROSCLEROTIC VASCULAR DISEASE. NO HEMODYNAMICALLY SIGNIFICANT STENOSIS 2D-ECHO: LVEF-60% Internal Medicine Assmt/Plan - Assessment Assessment: 1) GENERILIZED WEAKNESS WITH FREQUENT FALLS 2) RECENT FALL WITH LEFT CHEST/ARM TRAUMA-NO EVIDENCE OF FRACTURES 3) HISTORY OF CVA WITH LATE FINDINGS (LEFT SIDED WEAKNESS/ATAXIA/DIZZYNESS) 4) UTI-FOLLOW C/S 5) LIKELY BRONCHITIS/ATELECTASIS 6) LEUKOCYTOSIS-RESOLVED 7) HISTORY OF DM2 8) ESSENTIAL HTN 9) HISTORY OF BPH 10) MUKUND CALCIFIED GRANULOMA 11) DISPO-SNF PLACEMENT PER FAMILY'S WISHES - Plan Plan: CONT WITH CURRENT SUPPORTIVE CARE AND MGT CONT WITH PT TOLERATED CONT WITH CURRENT MEDS SCHEDULED, INCLUDING ASA/PLAVIX/STATIN BP MEDS ADJUSTED CONT WITH IV ABXS, FOLLOW C/S PT AND FAMILY AGREEABLE TO DC TO SNF
[2019-04-02] MEDS ORDERED: Potassium Chloride 20 mEq ER Tab PO ONE (10:06)
--- NOTE | 2019-04-02 16:27 | Cardiology ---
04/01/[address] Sanabria M-MODE ECHOCARDIOGRAM: Mitral valve, anterior leaflet of mitral valve shows normal excursion, EF velocity. Posterior leaflet of mitral valve shows normal excursion. Left ventricular posterior wall shows increased thickness, normal excursion. Interventricular septum shows increased thickness, normal excursion, hypertrophy of the left ventricle, ejection fraction 60%. Left atrium normal. Aortic root shows normal dimension, normal excursion of aortic leaflets. 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 2D ECHO: Long axis view showed normal sized left ventricle with hypertrophy of the left ventricle. Left atrium normal. Aortic root shows normal dimension, normal excursion of aortic leaflets. Short axis view of mitral valve normal. Short axis view of aortic valve normal. Apical four chamber view showed normal-sized left ventricle, left atrium, right ventricle, right atrium, tricuspid and mitral valve. Ejection fraction 60%. 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 Doppler study shows moderate mitral regurgitation, moderate tricuspid regurgitation, right ventricular systolic pressure 30 mmHg. JOB# [id number]
[2019-04-03 05:40] LABS: % BASOPHILS 0.3 % (0.0-2.0); % EOSINOPHILS 3.5 % (0.0-5.0); % LYMPHOCYTES 15.4 % (20.0-50.0); % MONOCYTES 11.1 % (2.0-10.0); % NEUTROPHILS 69.7 % (40.0-80.0); EOSINOPHILE ABSOLUTE 0.3 Th/cmm (0.1-0.4); HEMATOCRIT 33.8 % (41.0-60); HEMOGLOBIN 11.6 gm/dL (12-16); LYMPHOCYTE ABSOLUTE 1.2 Th/cmm (1.5-3.0); MEAN CELL VOLUME 94.4 fl (80-99); MEAN CORPUSCULAR HEMOGLOBIN 32.2 pg (27.0-31.0); MEAN CORPUSCULAR HGB CONC 34.1 pg (28.0-36.0); MEAN PLATELET VOLUME 6.2 fl; MONOCYTE ABSOLUTE 0.9 Th/cmm (0.3-1.0); NEUTROPHILE ABSOLUTE 5.6 Th/cmm (1.8-8.0); PLATELET COUNT 250 Th/cmm (150-400); RED BLOOD COUNT 3.58 Mil/cmm (3.80-5.80); RED CELL DISTRIBUTION WIDTH 13.2 % (11.5-20.0)
[2019-04-03 06:08] LABS: ANION GAP 12.6 (7.0-16.0); BUN - UREA NITROGEN 16 mg/dL (7-25); CARBON DIOXIDE 22.2 mEq/L (21.0-31.0); CHLORIDE 107 mEq/L (98-107); CREATININE - SERUM 1.1 mg/dL (0.7-1.3); GLUCOSE 157 mg/dL (70-105); MAGNESIUM 2.3 mg/dL (1.9-2.7); POTASSIUM SERUM 3.8 mEq/L (3.5-5.1); SODIUM SERUM 138 mEq/L (136-145)
[2019-04-03] MEDS: INSULIN LISPRO SLIDING SCALE 100 UNITS/ML UNIT SUBQ SCH ×3 (06:40→17:21)
[2019-04-03] MEDS: Ciprofloxacin 200mg Premix PB 200 MG/100 ML BAG IV SCH (08:24)
[2019-04-03] MEDS: Aspirin 81mg Chewable Tab PO SCH (08:28)
--- NOTE | 2019-04-03 12:15 | Internal Medicine Prog Note ---
Internal Medicine Subjective - Subjective Service Date: 04/03/19 (comfortable. patient and family agreeable to short snf placement.) Patient is:: awake Per staff patient has:: no adverse event, eating well, tolerating meds Internal Medicine Objective - Results Result Diagrams: 04/03/19 05:10 04/03/19 05:10 Recent Labs: Laboratory Last Values WBC 8.0 Th/cmm (4.8-10.8) 04/03/19 05:10 RBC 3.58 Mil/cmm (3.80-5.80) L 04/03/19 05:10 Hgb 11.6 gm/dL (12-16) L 04/03/19 05:10 Hct 33.8 % (41.0-60) L 04/03/19 05:10 MCV 94.4 fl (80-99) 04/03/19 05:10 MCH 32.2 pg (27.0-31.0) H 04/03/19 05:10 MCHC Differential 34.1 pg (28.0-36.0) 04/03/19 05:10 RDW 13.2 % (11.5-20.0) 04/03/19 05:10 Plt Count 250 Th/cmm (150-400) 04/03/19 05:10 MPV 6.2 fl 04/03/19 05:10 Add Manual Diff YES 03/31/19 10:40 Neutrophils % 69.7 % (40.0-80.0) 04/03/19 05:10 Band Neutrophils % 0 % (0-10) 03/31/19 10:40 Lymphocytes % 15.4 % (20.0-50.0) L 04/03/19 05:10 Monocytes % 11.1 % (2.0-10.0) H 04/03/19 05:10 Eosinophils % 3.5 % (0.0-5.0) 04/03/19 05:10 Basophils % 0.3 % (0.0-2.0) 04/03/19 05:10 Neutrophils (Manual) 84 % (40-80) H 03/31/19 10:40 Lymphocytes 10 % (20-50) L 03/31/19 10:40 Monocytes 6 % (2-10) 03/31/19 10:40 Eosinophils 0 % (0-5) 03/31/19 10:40 Basophils 0 % (0-3) 03/31/19 10:40 PT 10.3 SECONDS (9.5-11.5) 03/31/19 10:40 INR 0.99 (0.5-1.4) 03/31/19 10:40 PTT (Actin FS) 28.5 SECONDS (26.0-38.0) 03/31/19 10:40 Sodium 138 mEq/L (136-145) 04/03/19 05:10 Potassium 3.8 mEq/L (3.5-5.1) 04/03/19 05:10 Chloride 107 mEq/L (98-107) 04/03/19 05:10 Carbon Dioxide 22.2 mEq/L (21.0-31.0) 04/03/19 05:10 Anion Gap 12.6 (7.0-16.0) 04/03/19 05:10 BUN 16 mg/dL (7-25) 04/03/19 05:10 Creatinine 1.1 mg/dL (0.7-1.3) 04/03/19 05:10 Est GFR ( Amer) TNP 04/03/19 05:10 Est GFR (Non-Af Amer) TNP 04/03/19 05:10 BUN/Creatinine Ratio 14.5 04/03/19 05:10 Glucose 157 mg/dL (70-105) H 04/03/19 05:10 POC Glucose 139 MG/DL (70 - 105) H 04/03/19 06:03 Calcium 9.0 mg/dL (8.6-10.3) 04/03/19 05:10 Magnesium 2.3 mg/dL (1.9-2.7) 04/03/19 05:10 Total Bilirubin 1.2 mg/dL (0.3-1.0) H 04/01/19 04:50 AST 13 U/L (13-39) 04/01/19 04:50 ALT 15 U/L (7-52) 04/01/19 04:50 Alkaline Phosphatase 82 U/L (34-104) 04/01/19 04:50 Troponin I 0.01 ng/mL (0.01-0.05) 03/31/19 10:40 B-Natriuretic Peptide 280.0 pg/mL (5.0-100.0) H 04/02/19 05:15 Total Protein 6.4 gm/dL (6.0-8.3) 04/01/19 04:50 Albumin 3.6 gm/dL (4.2-5.5) L 04/01/19 04:50 Globulin 2.8 gm/dL 04/01/19 04:50 Albumin/Globulin Ratio 1.3 (1.0-1.8) 04/01/19 04:50 Triglycerides 117 mg/dL (<150) 04/01/19 04:50 Cholesterol 104 mg/dL (<200) 04/01/19 04:50 LDL Cholesterol Direct 58 mg/dL (75-193) L 04/01/19 04:50 HDL Cholesterol 29 mg/dL (23-92) 04/01/19 04:50 TSH 3.22 uIU/ml (0.34-5.60) 04/01/19 04:50 Urine Source CLEAN C 03/31/19 14:30 Urine Color YELLOW 03/31/19 14:30 Urine Clarity CLEAR (CLEAR) 03/31/19 14:30 Urine pH 5.5 (4.6 - 8.0) 03/31/19 14:30 Ur Specific [place] 1.025 (1.005-1.030) 03/31/19 14:30 Urine Protein 100 mg/dL (NEGATIVE) H 03/31/19 14:30 Urine Glucose (UA) 100 mg/dL (NEGATIVE) H 03/31/19 14:30 Urine Ketones TRACE mg/dL (NEGATIVE) 03/31/19 14:30 Urine Blood SMALL (NEGATIVE) H 03/31/19 14:30 Urine Nitrate NEGATIVE (NEGATIVE) 03/31/19 14:30 Urine Bilirubin SMALL (NEGATIVE) H 03/31/19 14:30 Urine Urobilinogen 2.0 E.U./dL (0.2 - 1.0) 03/31/19 14:30 Ur Leukocyte Esterase MODERATE (NEGATIVE) H 03/31/19 14:30 Urine RBC 2-5 /hpf (0-5) H 03/31/19 14:30 Urine WBC 6-10 /hpf (0-5) 03/31/19 14:30 Ur Epithelial Cells FEW /lpf (FEW) 03/31/19 14:30 Urine Bacteria 1+ /hpf (NONE SEEN) H 03/31/19 14:30 - Physical Exam Vitals and I&O: Vital Signs Temp 98.4 F 04/03/19 07:44 Pulse 76 04/03/19 08:27 Resp 18 04/03/19 08:00 BP 156/90 04/03/19 08:27 Pulse Ox 96 04/03/19 07:44 Intake & Output 04/02/19 04/03/19 04/03/19 18:59 06:59 18:59 Intake Total 300 200 Output Total 76 Balance 224 200 Weight (lbs) 71.668 kg 70.307 kg Intake: Intake, IV Amount 100 100 Ciprofloxacin 200mg 100 100 Premix PB 200 mg In 100 ml @ 100 mls/hr IV Q12HR [facility] Rx#:[id number] Oral 200 100 Output: Urine 75 Stool 1 Other: # Voids 4 3 # Bowel Movements 1 Stool Characteristics Soft Soft Soft Weight Source Bedscale Bedscale Active Medications: Current Medications Acetaminophen (Tylenol) 650 mg PO Q6H PRN PRN Reason: FOR PAIN Stop: 05/30/19 19:59 Last Admin: 04/02/19 22:34 Dose: 650 mg Aspirin (Aspirin Chewable) 81 mg PO DAILY [facility] Stop: 05/31/19 08:59 Last Admin: 04/03/19 08:28 Dose: 81 mg Atorvastatin Calcium (Lipitor) 40 mg PO DAILY [facility]; Protocol Stop: 06/01/19 10:14 Last Admin: 04/03/19 08:26 Dose: 40 mg Clopidogrel Bisulfate (Plavix) 75 mg PO QPM [facility] Stop: 05/31/19 16:59 Last Admin: 04/02/19 17:09 Dose: 75 mg Finasteride (Proscar) 5 mg PO DAILY [facility]; Protocol Stop: 05/31/19 08:59 Last Admin: 04/03/19 08:26 Dose: 5 mg Glipizide (Glucotrol) 10 mg PO BID [facility] Stop: 05/31/19 08:59 Last Admin: 04/03/19 08:26 Dose: 10 mg Hydralazine HCl (Apresoline) 25 mg PO Q4HR PRN PRN Reason: SBP ABOVE 160 Stop: 06/01/19 10:08 Ciprofloxacin (Cipro 200mg Premix Pb) 200 mg in 100 mls @ 100 mls/hr IV Q12HR [facility] Stop: 05/30/19 20:59 Last Admin: 04/03/19 08:24 Dose: 100 mls/hr Insulin Human Lispro (Humalog Insulin Sliding Scale) 0 units SUBQ ACHS [facility]; Protocol Stop: 05/30/19 20:59 Last Admin: 04/03/19 11:27 Dose: 2 units Lisinopril (Zestril) 20 mg PO DAILY [facility] Stop: 06/01/19 10:14 Last Admin: 04/03/19 08:27 Dose: 20 mg Promethazine HCl/Dextromethorphan (Phenergan Dm 6.25/15mg-5 Ml) 10 ml PO Q4HR PRN PRN Reason: Cough Stop: 05/31/19 21:07 Last Admin: 04/02/19 22:34 Dose: 10 ml Tamsulosin HCl (Flomax) 0.4 mg PO DAILY [facility] Stop: 05/31/19 08:59 Last Admin: 04/03/19 08:27 Dose: 0.4 mg General: NAD HEENT: NC/AT, PERRLA, EOMI Neck: Supple, No JVD, No LAD Lungs: CTAB Cardiovascular: RRR, Normal S1, Normal S2, without murmur Abdomen: soft, non-tender, non-distended Extremities: clear Neurological: no change Internal Medicine Assmt/Plan - Assessment Assessment: 1) GENERILIZED WEAKNESS WITH FREQUENT FALLS 2) RECENT FALL WITH LEFT CHEST/ARM TRAUMA-NO EVIDENCE OF FRACTURES 3) HISTORY OF CVA WITH LATE FINDINGS (LEFT SIDED WEAKNESS/ATAXIA/DIZZYNESS) 4) UTI-FOLLOW C/S 5) LIKELY BRONCHITIS/ATELECTASIS 6) LEUKOCYTOSIS-RESOLVED 7) HISTORY OF DM2 8) ESSENTIAL HTN 9) HISTORY OF BPH 10) MUKUND CALCIFIED GRANULOMA 11) DISPO-SNF PLACEMENT PER FAMILY'S WISHES - Plan Plan: CONT WITH CURRENT SUPPORTIVE CARE AND MGT CONT WITH PT TOLERATED CONT WITH CURRENT MEDS SCHEDULED, INCLUDING ASA/PLAVIX/STATIN CONT WITH IV ABXs PT AND FAMILY AGREEABLE TO DC TO SNF AWAITING PLACEMENT
== END 2019-04-03 19:55 | DRG 202 ==
LOC: ER 09:36 → MSI 16:36
PROVIDERS: ADMIT Internal Medicine; ATTEND Internal Medicine
DX: J20.9 Acute bronchitis, unspecified (principal); N39.0 Urinary tract infection, site not specified; J98.11 Atelectasis; I69.354 Hemiplegia and hemiparesis following cerebral infarction affecting left non-dominant side; J47.9 Bronchiectasis, uncomplicated; E11.9 Type 2 diabetes mellitus without complications; N40.0 Benign prostatic hyperplasia without lower urinary tract symptoms; I10 Essential (primary) hypertension; E78.5 Hyperlipidemia, unspecified; E86.0 Dehydration; J84.10 Pulmonary fibrosis, unspecified; S16.1XXA Strain of muscle, fascia and tendon at neck level, initial encounter; S51.812A Laceration without foreign body of left forearm, initial encounter; W18.30XA Fall on same level, unspecified, initial encounter; Y93.89 Activity, other specified; Y99.8 Other external cause status; Y92.89 Other specified places as the place of occurrence of the external cause; I69.393 Ataxia following cerebral infarction; Z88.1 Allergy status to other antibiotic agents
CPT/HCPCS: 36415-UA; 70450-TC; 71045-TC; 71101-TC-LT; 72125-TC; 73090-TC-LT; 80048-TC; 80053-TC; 80061-TC; 81001-TC; 82948-90; 83036-90; 83735-TC; 83880-TC; 84443-TC; 84484-TC; 85007-TC; 85025-TC; 85610-TC; 87070; 87086-90; 93005; 93880-TC; 97530; J0456; J0744; J3475; J7030; X3904; Z7610